=== PATIENT | male | born 1975 | race Caucasian/White ===

== ENCOUNTER 2016-12-05 18:59 | Observation (INO) | payer SELFPAY ==
[~2016-12-05] VITALS: Ht 188 cm; Wt 117.9 kg
[~2016-12-05 18:59] MED LIST: Dexamethasone 4mg/ml vial ONE; LR 1000ml ONE; Lidocaine 1% MPF 10mg/ml 5ml ONE; Midazolam 2mg/2ml Inj ONE; Propofol 10mg/ml 20ml IV ONE; fentaNYL 100 mcg/2 mL IV ONE
--- NOTE | 2016-12-05 19:04 | Emergency Room Report ---
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 Patient was noted to have recent exam which showed a retinal detachment near the macula. The patient was sent for preoperative clearance for surgery. The patient noted have some decreased vision to his right eye. He denied any current pain. He stated that he had had been seen earlier in the day and was told that he would need emergency surgery. Allergies: Coded Allergies: No Known Allergies (Unverified , 12/05/16) Patient History Reviewed Nursing Documentation: PMH: Agreed, PSxH: Agreed Review of Systems All Other Systems: negative except mentioned in HPI Physical Exam Sp02 EP Interpretation: reviewed, normal General Appearance: normal inspection, well appearing, no apparent distress, alert, GCS 15, non-toxic Head: atraumatic Eyes: bilateral eye other - dilated pupils previously at clinic, nonreactive ENT: normal ENT inspection, hearing grossly normal, normal voice Neck: normal inspection, full range of motion, supple, no bony tend Respiratory: normal inspection, lungs clear, normal breath sounds, no respiratory distress, no retraction, no wheezing Cardiovascular #1: regular rate, rhythm, no edema Gastrointestinal: normal inspection, normal bowel sounds, non tender, soft, no guarding, no hernia Genitourinary: no CVA tenderness Musculoskeletal: normal inspection, back normal, normal range of motion Neurologic: normal inspection, alert, responsive, speech normal Psychiatric: normal inspection, judgement/insight normal, mood/affect normal Skin: normal inspection, normal color, no rash Medical Decision Making Diagnostic Impression: Primary Impression: Retinal detachment ER Course Patient presented for retinal detachment. The patient is here for preop clearance.Dr. Saul Merino was contacted for opthalmology for definitive management of retinal detachment. Patient was noted to have unremarkable laboratory testing. Patient was noted to have a visual field cut consistent with retinal attachment. The patient will be taken to the OR for definitive management EKG Diagnostic Results Rate: normal Rhythm: NSR ST Segments: no acute changes Rhythm Strip Diag. Results EP Interpretation: yes Status: unchanged Disposition: PLACE IN OBSERVATION Condition: Stable Morgan Vernon Dec 05, 2016 19:04
[2016-12-05 19:57] LABS: BASOPHILS % (AUTO) 0.7 % (0.0-2.0); EOSINOPHILS % (AUTO) 2.1 % (0.0-3.0); LYMPHOCYTES % (AUTO) 16.7 % (20.0-45.0); MEAN CORPUSCULAR HEMOGLOBIN 33.1 PG (27.0-31.0); MEAN CORPUSCULAR HGB CONC 36.3 G/DL (32.0-36.0); MEAN CORPUSCULAR VOLUME 91 FL (80-99); MEAN PLATELET VOLUME 9.3 FL (6.5-10.1); MONOCYTES % (AUTO) 4.5 % (1.0-10.0); PLATELET COUNT 148 K/UL (150-450); RED BLOOD COUNT 4.79 M/UL (4.70-6.10); RED CELL DISTRIBUTION WIDTH 11.5 % (11.6-14.8); WHITE BLOOD COUNT 11.3 K/UL (4.8-10.8)
[2016-12-05 20:10] VITALS: BP 138/97
[2016-12-05 20:16] LABS: PROTHROMBIN TIME 10.3 SEC (9.30-11.50)
[2016-12-05 20:19] LABS: ALANINE AMINOTRANSFERASE 78 U/L (3-41); ALBUMIN/GLOBULIN RATIO 2.1 (1.0-2.7); ANION GAP 16 (5-15); ASPARTATE AMINO TRANSFERASE 70 U/L (5-40); CALCIUM 9.4 mg/dL (8.6-10.2); CARBON DIOXIDE 25 mEQ/L (20-30); CHLORIDE 99 mEQ/L (98-107); CREATININE 0.8 mg/dL (0.7-1.2); GLOMERULAR FILTRATION RATE > 60 mL/min (>60); HEMOLYSIS 9; POTASSIUM 3.9 mEQ/L (3.4-4.9); SODIUM 140 mEQ/L (135-145); TOTAL PROTEIN 6.9 g/dL (6.6-8.7)
[2016-12-05 20:38] LABS: BILIRUBIN,DIRECT 0.2 mg/dL (0.1-0.3)
[2016-12-05] MEDS ORDERED: BSS 500ml btl ONE ×2 (20:41→23:03)
[2016-12-05] MEDS ORDERED: Tetracaine 0.5% Opth Soln ONE (20:42)
[2016-12-05] MEDS ORDERED: Dexamethasone 4mg/ml vial ONE (20:42)
[2016-12-05] MEDS ORDERED: Maxitrol Opth Oint 3.5gm ONE (20:42)
[2016-12-05] MEDS ORDERED: Kenalog-10 5ml Inj ONE (20:42)
[2016-12-05] MEDS ORDERED: Bupivacaine 0.75% 30ml vial INJ ONE (20:43)
[2016-12-05] MEDS ORDERED: Lidocaine 2% MPF 5ml Vial INJ ONE (20:43)
[2016-12-05] MEDS ORDERED: Povidone-Iodine 5% opth solution ONE (20:43)
[2016-12-05] MEDS ORDERED: BSS 15ml BTL ONE (20:43)
[2016-12-05] MEDS ORDERED: Goniosol 2.5% Opth Soln - 15ml ONE (20:43)
--- NOTE | 2016-12-05 20:58 | Anethesia Preoperative Eval ---
Anesthesia Pre-op PMH/ROS General Date of Evaluation: Dec 05, 2016 Anesthesiologist: Jaylan ASA Score: ASA 2 - emergency Mallampati Score Class I : Soft palate, uvula, fauces, pillars visible Class II: Soft palate, uvula, fauces visible Class III: Soft palate, base of uvula visible Class IV: Only hard plate visible Mallampati Classification: Class III Surgeon: Angelique Diagnosis: Right retinal detachment Surgical Procedure: Right vitrectomy and scleral buccal Anesthesia History: none Family History: no anesthesia problems Allergies: Coded Allergies: No Known Allergies (Unverified , 12/05/16) Medications: see eMAR Past Medical History Cardiovascular: Denies: CAD, HTN, PR, arrhythmia, other, valve dz Pulmonary: Denies: COPD, CARMEN, asthma, other Gastrointestinal/Genitourinary: Reports: GERD, Denies: CRI, ESRD, other Neurologic/Psychiatric: Denies: CVA, TIA, dementia, depression/anxiety, other Endocrine: Denies: DM, hypothyroidism, other, steroids HEENT: Denies: UNGA (L), UNGA (R), cataract (L), cataract (R), glaucoma, other Hematology/Immune: Denies: DVT, anemia, bleeding disorder, other Musculoskeletal/Integumentary: Reports: other - gout, Denies: DDD, DJD, OA, RA, edema Other: obesity - morbid PSxH Narrative: Denies Anesthesia Pre-op Phys. Exam Physician Exam Last Vital Signs Date Time Temp Pulse Resp B/P Pulse Ox O2 Delivery O2 Flow Rate FiO2 12/05/16 20:10 98.6 66 12 138/97 98 Room Air Constitutional: NAD Cardiovascular: RRR Respiratory: CTA Airway Exam Mallampati Score: Class III MO: limited ROM: full Anesthesia Pre-op A/P Labs Hematology Test 12/05/16 19:45 White Blood Count 11.3 K/UL (4.8-10.8) H Red Blood Count 4.79 M/UL (4.70-6.10) Hemoglobin 15.8 G/DL (14.2-18.0) Hematocrit 43.6 % (42.0-52.0) Mean Corpuscular Volume 91 FL (80-99) Mean Corpuscular Hemoglobin 33.1 PG (27.0-31.0) H Mean Corpuscular Hemoglobin Concent 36.3 G/DL (32.0-36.0) H Red Cell Distribution Width 11.5 % (11.6-14.8) L Platelet Count 148 K/UL (150-450) L Mean Platelet Volume 9.3 FL (6.5-10.1) Neutrophils (%) (Auto) 76.0 % (45.0-75.0) H Lymphocytes (%) (Auto) 16.7 % (20.0-45.0) L Monocytes (%) (Auto) 4.5 % (1.0-10.0) Eosinophils (%) (Auto) 2.1 % (0.0-3.0) Basophils (%) (Auto) 0.7 % (0.0-2.0) Coagulation Test 12/05/16 19:45 Prothrombin Time 10.3 SEC (9.30-11.50) Prothromb Time International Ratio 1.0 (0.9-1.1) Activated Partial Thromboplast Time 26 SEC (23-33) Chemistry Test 12/05/16 19:45 Sodium Level 140 mEQ/L (135-145) Potassium Level 3.9 mEQ/L (3.4-4.9) Chloride Level 99 mEQ/L (98-107) Carbon Dioxide Level 25 mEQ/L (20-30) Anion Gap 16 (5-15) H Blood Urea Nitrogen 13 mg/dL (7-23) Creatinine 0.8 mg/dL (0.7-1.2) Estimat Glomerular Filtration Rate > 60 mL/min (>60) Glucose Level 96 mg/dL (74-106) Calcium Level 9.4 mg/dL (8.6-10.2) Total Bilirubin 1.2 mg/dL (0.0-1.2) Direct Bilirubin 0.2 mg/dL (0.1-0.3) Aspartate Amino Transf (AST/SGOT) 70 U/L (5-40) H Alanine Aminotransferase (ALT/SGPT) 78 U/L (3-41) H Alkaline Phosphatase 67 U/L (40-129) Total Protein 6.9 g/dL (6.6-8.7) Albumin 4.7 g/dL (3.5-5.2) Globulin 2.2 g/dL Albumin/Globulin Ratio 2.1 (1.0-2.7) Studies Pre-op Studies: EKG Risk Assessment & Plan Assessment: ASA IIE Plan: GA Status Change Before Surgery: No Pre-Antibiotics Drug: NRaúlA OLEG AMARO M.D. Dec 05, 2016 20:58
--- NOTE | 2016-12-05 20:59 | Immediate Post-Op Evaluation ---
Immediate Post-Op Evalulation Immediate Post-Op Evalulation Procedure: Right eye vitrectomy and sclerral buccal Date of Evaluation: Dec 05, 2016 Time of Evaluation: 00:15 Blood Products: 0 Estimated Blood Loss: min Urinary Output: 0 Blood Pressure Systolic: 121 Blood Pressure Diastolic: 79 Pulse Rate: 77 Respiratory Rate: 16 O2 Sat by Pulse Oximetry: 97 Temperature (Fahrenheit): 97.1 Pain Score (1-10): 0 Nausea: No Vomiting: No Complications 0 Patient Status: awake, reacts, patent, none Hydration Status: adequate Drug: N/A OLEG AMARO M.D. Dec 05, 2016 20:59
--- NOTE | 2016-12-05 20:59 | 48 Hour Post Anesthesia Eval ---
Post Anesthesia Evaluation Procedure: Right eye vitrectomy and sclerral buccal Date of Evaluation: Dec 05, 2016 Blood Pressure Systolic: 128 0: 81 Pulse Rate: 76 Respiratory Rate: 16 O2 Sat by Pulse Oximetry: 97 Airway: patent Nausea: No Vomiting: No Pain Intensity: 0 Hydration Status: adequate Cardiopulmonary Status: at baseline Mental Status/LOC: patient returned to baseline Post-Anesthesia Complications: 0 Follow-up care needed: ready to discharge OLEG AMARO M.D. Dec 05, 2016 20:59
--- NOTE | 2016-12-05 21:14 | Pre-Procedure Note/Attestation ---
Pre-Procedure Note/Attestation Complete Prior to Procedure Planned Procedure: right Procedure Narrative: Retinal detachment RIGHT EYE Indications for Procedure Pre-Operative Diagnosis: Retinal detachment RIGHT EYE Attestation I attest that I discussed the nature of the procedure; its benefits; risks and complications; and alternatives (and the risks and benefits of such alternatives ), prior to the procedure, with the patient (or the patient's legal front office representative). I attest that, if there was a reasonable possibility of needing a blood transfusion, the patient (or the patient's legal front office representative) was given the [facility] standardized written summary, pursuant to the Zackery Clover Blood Safety Act ([place] Health and Safety Code # 1645, as amended). I attest that I re-evaluated the patient just prior to the surgery and that there has been no change in the patient's H&P, except as documented below: Arnold Merino M.D. Dec 05, 2016 21:14
[2016-12-05 21:15] VITALS: BP 142/18
[2016-12-05] MEDS ORDERED: Tetracaine 0.5% Opth Soln RIGHT EYE SCH (21:15)
[2016-12-05] MEDS ORDERED: Cyclopentolate 1% Opth Sol RIGHT EYE SCH (21:15)
[2016-12-05] MEDS ORDERED: Phenylephrine 2.5% Op Soln RIGHT EYE SCH (21:15)
--- NOTE | 2016-12-05 21:16 | Brief Operative Note ---
Immediate Post Operative Note Operative Note Pre-op Diagnosis: Retinal detachment RIGHT EYE Procedure: SB/PPV/RTO/EL/SF6 OD Post-op Diagnosis: Same Surgeon: Angelique Anesthesia: general Specimen: none Complications: none Condition: stable Fluids: Minimal Drains: none Implant(s) used?: Yes - Arnold Gilmore M.D. Dec 05, 2016 21:16
--- NOTE | 2016-12-05 21:17 | Operative Note - PDOC ---
Operative Note Operative Note Pre-op Diagnosis: Retinal detachment RIGHT EYE Procedure: Scleral buckle (41 band, 72 sleeve), pars plans vitrectomy (23 gauge), posterior retinotomy, endolaser, air-fluid exchange, infusion of SF6 gas (20%), RIGHT EYE Post-op Diagnosis: Same Surgeon: Angelique Anesthesia: general Specimen: none Complications: none Condition: stable Fluids: Minimal Drains: none Indications for Procedure The patient has recurrent visual field loss due to retinal detachment and presents for urgent surgery after review of the risks, benefits, alternative and signing informed consent into the medical chart. Description of Procedure The patient was met in the pre-op area where informed consent was reviewed. The operative eye was verified, marked and dilated. The patient was transferred to the operative suite, where cardiopulmonary monitoring was established and general anesthesia was administered without complications. The eye was prepped and draped in sterile ophthalmic fashion. A lid speculum was placed. Under direct visualization, the conjunctiva was opened and the quadrants were dissected. The rectus muscles were isolated and hooked with silk sutures. The quadrants were inspected and no scleral defects were noted. The 41 band was encircled around the globe with its ends attached in the superonasal quadrant with the 72 sleeve. The buckle was sutured to the sclera with 5-0 nylon sutures at 4mm posterior to the muscle insertions in all 4 quadrants. The buckle was pulled flush against the globe, then 10mm beyond flush. The anterior chamber was tapped to reduce the intraocular pressure. The buckle ends were trimmed. Under microscope visualization, the 23 gauge infusion line was placed 3.5 millimeters inferotemporally. After visualization of the tip in the vitreous cavity, the infusion line was turned on. The superotemporal and superonasal cannulas were placed. Under ReSight visualization, peripheral and core vitrectomy was performed; PVD was confirmed. Meticulous vitrectomy was performed peripherally; the previously treated retinal tears were surrounded by light crying scarring and small retinal holes were noted at 12 o'clock. Inspection of the periphery revealed scattered areas of thinning along the buckle shelf. Posterior drainage retinotomy was created superiorly. Subretinal fluid was removed from the retinotomy and air-fluid exchange was performed. Endolaser was applied to all retinal tears, the retinotomy and along the shelf of the buckle indentation. Infusion of SF6 (20%) was performed. The cannulas and infusion line were removed and sutured with 6-0 vicryl sutures. The eye maintained normal intraocular pressure. The stay sutures were removed. The conjunctiva was pulled into place and closed with 5-0 plain gut sutures. Subconjunctival vancomycin and dexamethasone were administered. The lid speculum was removed. The eye was cleaned of prep and drape. Atropine drop and Maxitrol ointment was applied. A pressure patch was placed. The patient was turned over to the anesthesia team, extubated and transferred in stable condition to the PACU. Arnold Merino M.D. Dec 05, 2016 21:17
[2016-12-05] MEDS ORDERED: LR 1000ml 1,000 ML IVLG SCH ×2 (21:51→22:00)
[2016-12-05] MEDS ORDERED: Labetalol 5mg/ml 20ml vial IV PRN ×2 (22:00→22:15)
[2016-12-05] MEDS ORDERED: fentaNYL 100 mcg/2 mL IV PRN ×2 (22:00→22:15)
[2016-12-05] MEDS ORDERED: DiphenhydrAMINE 50mg/ml Inj IVP PRN ×2 (22:00→22:30)
[2016-12-06] VITALS (8 sets, daily range): BP systolic 121–136; BP diastolic 68–82
[2016-12-06] MEDS ORDERED: Ketorolac 30mg Inj IV ONE (02:00)
--- NOTE | 2016-12-10 00:33 | Cardiology Report ---
APPROVED REPORT EKG Measurement Heart [id number] Normal sinus rhythm Rightward axis Borderline ECG
== END 2016-12-06 03:30 | disposition home or self-care (01) ==
LOC: EMR 20:01 → EDBEDREQ 20:50 → 4E 20:52 → EMR 21:15 → EDBEDREQ 21:51 → 4E 12-06 03:11
DX: H33.021 Retinal detachment with multiple breaks, right eye (principal); K21.9 Gastro-esophageal reflux disease without esophagitis; M10.9 Gout, unspecified; E66.01 Morbid (severe) obesity due to excess calories
CPT/HCPCS: 36415; 67108; 80053; 82248; 85025; 85610; 85730; 93005; 99285; G0378; J1100; J1885; J2250; J2405; J2704; J3010; J3301; J3370; J3490; J7120; 94003; 94150